=== PATIENT | male | born 1955 | race Caucasian/White ===

== ENCOUNTER 2025-07-05 02:56 | Inpatient (IN) | payer MEDICARE, MEDICAID ==
[~2025-07-05] VITALS: Ht 177.8 cm; Wt 65.8 kg
[~2025-07-05 02:56] MED LIST: DIAZ10TA PO; [UNRECOGNIZED DRUG - CODE] BC; [UNRECOGNIZED DRUG - CODE] PO
[2025-07-05] MEDS: hydrALAZINE HCL IV 20 MG VIAL IV ONE (04:00)
[2025-07-05] MEDS ORDERED: hydrALAZINE HCL IV 20 MG VIAL ONE (04:04)
[2025-07-05] MEDS: IV NS 0.9% 1,000 ML BAG IV ONE (04:32)
[2025-07-05 04:44] LABS: PLATELET COUNT (AUTO) 600 K/uL (150-450); RED BLOOD CELL COUNT(AUTO) 4.01 MIL/uL (4.5-6.0); RED CELL DISTRIBUTION WIDTH 16.0 % (11.5-15.0); WHITE BLOOD COUNT (AUTO) 11.9 K/uL (4.3-11.0)
[2025-07-05 04:51] LABS: ERYTHROCYTE SEDIMENTATION RATE 86 MM/HR (0-20)
[2025-07-05 04:59] LABS: ASPARTATE AMINOTRANSFERASE 19.0 U/L (15-37); CALCIUM, SERUM 8.4 mg/dL (8.5-10.1); CREATININE 1.0 mg/dL (0.6-1.3); SODIUM SERUM 138.0 mmol/L (136-145); TOTAL PROTEIN, SERUM 7.9 g/dL (6.4-8.2); UREA NITROGEN, BLOOD 14.0 mg/dL (7-18)
[2025-07-05] MEDS ORDERED: VANCOMYCIN 1 GM /D5W 250 ML PB IV ONE (05:33)
[2025-07-05] MEDS: VANCOMYCIN 1 GM in IV D5W 250 ML IV ONE (05:40)
[2025-07-05] MEDS ORDERED: LORAZEPAM 1 MG TABLET PO PRN (06:30)
[2025-07-05] MEDS ORDERED: MAGNESIUM HYDROXIDE 30 ML UDC PO PRN (06:30)
[2025-07-05] MEDS ORDERED: FENTANYL CITRATE BC PRN (06:30)
[2025-07-05] MEDS ORDERED: MAG HYDROX/AL HYDROX/SIMETH 30 ML UDC PO PRN (06:30)
[2025-07-05] MEDS ORDERED: DOSING PER PHARMACY-VANCOMYCIN IV XX PRN (06:30)
[2025-07-05] MEDS ORDERED: [UNRECOGNIZED DRUG - OTHER] BC PRN (06:30)
[2025-07-05] MEDS ORDERED: hydrALAZINE HCL IV 20 MG VIAL IV PRN (06:30)
[2025-07-05] MEDS ORDERED: ONDANSETRON HCL/PF 4 MG/2 ML VIAL IVP PRN (06:30)
[2025-07-05] MEDS ORDERED: Z GUARD REMEDY 4 OZ OINT TP PRN (06:30)
[2025-07-05] MEDS ORDERED: ACETAMINOPHEN 325 MG TABLET ONE (06:35)
[2025-07-05] MEDS: ACETAMINOPHEN 325 MG TABLET PO PRN (06:38)
[2025-07-05 08:00] VITALS: BP 118/68; TEMP 98.4; O2SAT 99
[2025-07-05] MEDS ORDERED: MORPHINE SULFATE PO SCH (09:00)
[2025-07-05] MEDS: HYDROCODONE/APAP 10/325MG TABLET PO PRN (10:08)
[2025-07-05] MEDS: ENOXAPARIN SODIUM 40 MG/0.4 ML DISP.SYRIN SQ SCH (10:09)
[2025-07-05] MEDS: POTASSIUM CHLORIDE 20 MEQ TAB.PRT.SR PO ONE (11:32)
[2025-07-05 16:00] VITALS: BP 119/70; TEMP 98; O2SAT 97
[2025-07-05] MEDS: DAKINS QUARTER STRENGTH (0.125%) 480 ML BOTTLE TOP SCH (16:24)
[2025-07-05] MEDS: VANCOMYCIN 750 MG in IV D5W 250 ML IV SCH (16:24)
[2025-07-05] MEDS: CEFTRIAXONE 1 G in IV D5W 50 ML IV SCH (17:36)
[2025-07-05 20:13] VITALS: BP 122/65; TEMP 98.4; O2SAT 99
[2025-07-06 04:00] VITALS: BP 154/89; TEMP 98; O2SAT 98
[2025-07-06 08:00] VITALS: BP 145/93; TEMP 97.9; O2SAT 96
[2025-07-06 11:13] LABS: CALCIUM, SERUM 8.7 mg/dL (8.5-10.1); CREATININE 1.0 mg/dL (0.6-1.3); PHOSPHORUS 2.5 mg/dL (2.5-4.9); SODIUM SERUM 138.0 mmol/L (136-145); UREA NITROGEN, BLOOD 9.0 mg/dL (7-18)
[2025-07-06 16:00] VITALS: BP 151/89; TEMP 98.1; O2SAT 98
[2025-07-06 20:00] VITALS: BP 153/93; TEMP 98.1; O2SAT 99
== END 2025-07-06 23:00 | disposition left against medical advice (07) | DRG 500 ==
LOC: ER 03:06 → MS IN 06:05 → MEDSG1 07:07
PROVIDERS: ADMIT Nurse Practitioner Acute Care; ATTEND Registered Nurse Psychiatric/Mental Health
PROC: 0KBP0ZZ Excision of Left Hip Muscle, Open Approach (ICD-10-PCS; principal; 2025-07-05)
DX: M46.28 Osteomyelitis of vertebra, sacral and sacrococcygeal region (principal); L89.324 Pressure ulcer of left buttock, stage 4; E44.0 Moderate protein-calorie malnutrition; L89.224 Pressure ulcer of left hip, stage 4; G82.20 Paraplegia, unspecified; D64.9 Anemia, unspecified; D75.839 Thrombocytosis, unspecified; E87.6 Hypokalemia; I10 Essential (primary) hypertension; E88.09 Other disorders of plasma-protein metabolism, not elsewhere classified; L89.312 Pressure ulcer of right buttock, stage 2; Z99.3 Dependence on wheelchair; Z68.20 Body mass index [BMI] 20.0-20.9, adult; L98.8 Other specified disorders of the skin and subcutaneous tissue; L89.152 Pressure ulcer of sacral region, stage 2
CPT/HCPCS: 36415; 72195-TC; 80048-TC; 80053-TC; 83735-TC; 84100-TC; 85025-TC; 85652-TC; 86140-TC; 87081-TC; A4223; A6403; G0378; J0360; J0696; J1650; J3373; J3374; J7050; J7060